=== PATIENT | male | born 1975 | race Caucasian/White ===

== ENCOUNTER 2025-01-08 09:05 | Inpatient (IN) | payer SELFPAY ==
[2025-01-08] VITALS (28 sets, daily range): BP systolic 113–157; BP diastolic 68–121; PULSE 78–147; RESP 14–33; TEMP 98–98.8; O2SAT 95–99
[~2025-01-08] VITALS: Ht 182.9 cm; Wt 75.4 kg
[2025-01-08 09:43] LABS: BASOPHILS % 0.1 % (0.0-1.0); EOSINOPHILS % 0.0 % (0.0-6.0); LYMPHOCYTES % 6.7 % (18.0-39.1); MONOCYTES % 5.9 % (4.4-11.3); NEUTROPHILS % 86.5 % (38.7-80.0); RED CELL DISTRIBUTION WIDTH 13.3 % (11.7-14.4)
[2025-01-08] MEDS: SODIUM CHLORIDE 0.9% 1000ML 1,000 ML IV STA (09:52)
[2025-01-08] MEDS: ONDANSETRON HCL INJ 2MG/ML 2ML 2 MG/ML VIAL IV STA (09:52)
[2025-01-08] MEDS: LORAZEPAM INJ 2 MG/ML VIAL IV ONE ×3 (09:52→14:09)
[2025-01-08 10:26] LABS: INR 1.0
[2025-01-08 10:34] LABS: EST GLOMERULAR FILTRATION RATE 118 ML/MIN (>=60)
[2025-01-08] MEDS ORDERED: IOPAMIDOL 370 MG/ML 100 ML INFUS..BTL INJ ONE (10:45)
[2025-01-08] MEDS ORDERED: SODIUM CHLORIDE 0.9% 100 ML ONE (11:12)
[2025-01-08 11:38] LABS: LEUKOCYTE ESTERASE ,URINE NEGATIVE (NEGATIVE); PROTEIN,URINE DIPSTICK NEGATIVE (NEGATIVE)
[2025-01-08 11:39] LABS: AMPHETAMINES SCREEN,URINE NEGATIVE (NEGATIVE); CANNABINOIDS SCREEN,URINE NEGATIVE (NEGATIVE); COCAINE SCREEN,URINE NEGATIVE (NEGATIVE); METHADONE SCREEN, URINE NEGATIVE (NEGATIVE); OPIATES SCREEN,URINE NEGATIVE (NEGATIVE); URINE UROBILINOGEN 4.0 mg/dL (0.2 - 1)
[2025-01-08] MEDS: THIAMINE HCL INJ 100 MG/ML 2ML VIAL IV ONE (11:58)
[2025-01-08 12:00] LABS: EPITHELIAL CELLS,URINE RARE /LPF; WBC,URINE (MAN) 0-5 /HPF (0-5)
[2025-01-08] MEDS: METRONIDAZOLE 500MG/NS 100ML 100 ML IV SCH (12:00)
[2025-01-08] MEDS ORDERED: ONDANSETRON HCL INJ 2MG/ML 2ML 2 MG/ML VIAL IV PRN (12:15)
[2025-01-08] MEDS: ZIPRASIDONE 20 MG VIAL IM STA ×2 (14:08→14:44)
[2025-01-08] MEDS: WATER STERILE 10 ML VIAL IM SCH (14:12)
[2025-01-08] MEDS ORDERED: MAGNESIUM/ALUMINUM/SIMETHICONE 30 ML UDC PO PRN (14:30)
[2025-01-08] MEDS ORDERED: HYDRALAZINE HCL 20 MG/ML VIAL IV PRN (14:30)
[2025-01-08] MEDS ORDERED: ZIPRASIDONE 20 MG VIAL IM PRN (14:45)
[2025-01-08] MEDS ORDERED: ALBUTEROL0.63 MG/3 NEB (14:56)
[2025-01-08 15:08] LABS: ABG BASE EXCESS 2.0 mmol/L (-2 - 3); ABG HCO3 24 mmol/L (22-26); ABG OXYGEN SATURATION 95.0 % (95-98); ABG PCO2 30 mmHg (35-45); ABG PH 7.53 (7.35-7.45); ABG PO2 66 mmHg (80-105); ABG TCO2 25
[2025-01-08] MEDS: DEXMEDETOMIDINE 400MCG/NS100ML 100 ML IV PRN (16:22)
[2025-01-08 17:21] LABS: OSMOLALITY,SERUM 226 mOsm/kg (278-305)
[2025-01-08] MEDS: ENOXAPARIN SOD INJ 40 MG/0.4 ML SYR SC SCH (17:45)
[2025-01-08] MEDS: CARVEDILOL 3.125 MG TAB PO SCH (17:45)
[2025-01-08] MEDS: LACTULOSE SYRUP 20 GM/30 ML UDC PO SCH (17:46)
[2025-01-08] MEDS: DOCUSATE SODIUM 100 MG CAP PO SCH (17:46)
[2025-01-08] MEDS: MAGNESIUM SULFATE 2GM/50ML 50 ML IV ONE ×2 (17:46→19:07)
[2025-01-08] MEDS: CHLORDIAZEPOXIDE HCL 25 MG CAP PO SCH (17:46)
[2025-01-08] MEDS: QUETIAPINE FUMARATE 25 MG TAB PO SCH (20:35)
[2025-01-08] MEDS ORDERED: MELATONIN 3 MG TAB PO PRN (21:00)
[2025-01-08] MEDS: DEXTROSE 5% 1,000 ML IV SCH (22:01)
[2025-01-08] MEDS ORDERED: DESMOPRESSIN ONE (22:07)
[2025-01-08] MEDS: DESMOPRESSIN ACETATE 4 MCG/ML VIAL IV ONE (22:08)
[2025-01-09] VITALS (28 sets, daily range): BP systolic 106–148; BP diastolic 55–111; PULSE 59–108; RESP 11–28; TEMP 97.9–99; O2SAT 89–100
[2025-01-09] MEDS: LORAZEPAM INJ 2 MG/ML VIAL IV PRN ×2 (01:25→10:35)
[2025-01-09 06:55] LABS: BASOPHILS % 0.3 % (0.0-1.0); EOSINOPHILS % 0.4 % (0.0-6.0); LYMPHOCYTES % 9.4 % (18.0-39.1); MONOCYTES % 7.4 % (4.4-11.3); NEUTROPHILS % 81.6 % (38.7-80.0); RED CELL DISTRIBUTION WIDTH 14.5 % (11.7-14.4)
[2025-01-09 07:28] LABS: EST GLOMERULAR FILTRATION RATE 118.0 ML/MIN (>=60)
[2025-01-09] MEDS: MULTIVITAMINS/MINERALS TAB PO SCH (08:58)
[2025-01-09] MEDS: FOLIC ACID 1 MG TAB PO SCH (08:59)
[2025-01-09] MEDS: THIAMINE HCL 100 MG TAB PO SCH (08:59)
[2025-01-09] MEDS: LORAZEPAM INJ 2 MG/ML VIAL ONE (10:35)
[2025-01-09] MEDS: POTASSIUM CHLORIDE 20 MEQ TAB CR PO ONE (10:40)
[2025-01-09] MEDS: POTASSIUM CHLORIDE 20MEQ/100ML 100 ML IV SCH (10:40)
[2025-01-09] MEDS: LORAZEPAM INJ 2 MG/ML VIAL IV ONE (11:48)
[2025-01-09 16:07] LABS: EST GLOMERULAR FILTRATION RATE 120.0 ML/MIN (>=60)
[2025-01-09] MEDS: MULTIVITAMINS- 12 INJECTION 10 ML, FOLIC ACID MDV 1 MG, THIAMINE HCL INJ 100 MG in SODI... IV SCH (19:28)
[2025-01-09] MEDS: SODIUM CHLORIDE 1 GM TAB PO SCH (21:00)
[2025-01-10] VITALS (39 sets, daily range): BP systolic 105–175; BP diastolic 54–109; PULSE 38–102; RESP 16–31; TEMP 97.6–98.3; O2SAT 94–100
[2025-01-10 05:50] LABS: BASOPHILS % 0.8 % (0.0-1.0); EOSINOPHILS % 0.6 % (0.0-6.0); LYMPHOCYTES % 8.4 % (18.0-39.1); MONOCYTES % 8.6 % (4.4-11.3); NEUTROPHILS % 80.4 % (38.7-80.0); RED CELL DISTRIBUTION WIDTH 15.5 % (11.7-14.4)
[2025-01-10 06:33] LABS: EST GLOMERULAR FILTRATION RATE 120.0 ML/MIN (>=60)
[2025-01-10] MEDS ORDERED: DEXTROSE 5% 1,000 ML IV PRN (08:30)
[2025-01-10] MEDS: MULTIVITAMINS IV ONE (08:40)
[2025-01-10] MEDS: [UNRECOGNIZED DRUG - OTHER] IV ONE (08:40)
[2025-01-10] MEDS: THIAMINE HCL IV ONE (08:40)
[2025-01-10] MEDS: FOLIC ACID IV ONE (08:40)
[2025-01-10 09:19] LABS: EOSINOPHILS % (MANUAL) 1 % (0-7); LYMPHOCYTES % (MANUAL) 6 % (19-48); MONOCYTES % (MANUAL) 11 % (3.4-9.0); NEUTROPHILS % (MANUAL) 82 % (40-74); NUCLEATED RED BLOOD CELLS 3; PLATELET ESTIMATE SLIGHTLY DECREASED; PLATELET MORPHOLOGY COMMENT FEW LARGE
[2025-01-10] MEDS: POTASSIUM CHLORIDE 20MEQ/100ML 100 ML IV SCH (09:48)
[2025-01-10 15:06] LABS: EST GLOMERULAR FILTRATION RATE 120.0 ML/MIN (>=60)
[2025-01-10] MEDS: DESMOPRESSIN ACETATE 4 MCG/ML VIAL IV ONE (16:55)
[2025-01-10] MEDS: DEXMEDETOMIDINE 400MCG/NS100ML 100 ML IV PRN (17:23)
[2025-01-10] MEDS: POTASSIUM CHLORIDE 20 MEQ TAB CR PO ONE (18:42)
[2025-01-10] MEDS: GUAIFENESIN/DEXTROMETHORPHAN LIQD 5 ML UDC PO PRN (23:35)
[2025-01-10] MEDS: SODIUM CHLORIDE 0.9% 1000ML 1,000 ML IV PRN (23:37)
[2025-01-11] VITALS (27 sets, daily range): BP systolic 119–167; BP diastolic 66–132; PULSE 73–109; RESP 18–37; TEMP 98.9–99.8; O2SAT 94–100
[2025-01-11 06:16] LABS: BASOPHILS % 2.0 % (0.0-1.0); EOSINOPHILS % 1.0 % (0.0-6.0); LYMPHOCYTES % 11.9 % (18.0-39.1); MONOCYTES % 12.0 % (4.4-11.3); NEUTROPHILS % 69.7 % (38.7-80.0); RED CELL DISTRIBUTION WIDTH 16.3 % (11.7-14.4)
[2025-01-11 06:53] LABS: EST GLOMERULAR FILTRATION RATE 122.0 ML/MIN (>=60)
[2025-01-11] MEDS: ALBUTEROL/IPRATROPIUM 3 ML NEB NEB PRN (07:38)
[2025-01-11] MEDS: KCL 20 MEQ PACKET/ ORAL SOLN PO SCH (09:24)
[2025-01-11] MEDS: MULTIVITAMINS IV SCH (12:03)
[2025-01-11] MEDS: THIAMINE HCL IV SCH (12:03)
[2025-01-11] MEDS: FOLIC ACID IV SCH (12:03)
[2025-01-11] MEDS: [UNRECOGNIZED DRUG - OTHER] IV SCH (12:03)
[2025-01-11] MEDS: RIFAXIMIN 550 MG TABLET PO SCH (16:47)
[2025-01-12] VITALS (28 sets, daily range): BP systolic 81–159; BP diastolic 62–108; PULSE 68–87; RESP 17–38; TEMP 98.6–99.2; O2SAT 88–97
[2025-01-12 05:06] LABS: BASOPHILS % 2.1 % (0.0-1.0); EOSINOPHILS % 0.7 % (0.0-6.0); LYMPHOCYTES % 15.8 % (18.0-39.1); MONOCYTES % 10.1 % (4.4-11.3); NEUTROPHILS % 66.8 % (38.7-80.0); RED CELL DISTRIBUTION WIDTH 17.2 % (11.7-14.4)
[2025-01-12 05:31] LABS: EST GLOMERULAR FILTRATION RATE 121.0 ML/MIN (>=60)
[2025-01-12] MEDS: IPRATROPIUM BROMIDE 0.02% 2.5 ML NEB NEB PRN (19:37)
[2025-01-13] VITALS (21 sets, daily range): BP systolic 105–147; BP diastolic 71–111; PULSE 69–106; RESP 17–33; TEMP 97.8–100.1; O2SAT 83–100
[2025-01-13] MEDS ORDERED: POTASSIUM CHLORIDE 20 MEQ TAB CR PO STA (01:21)
[2025-01-13] MEDS ORDERED: POTASSIUM CHLORIDE 20MEQ/100ML 200 ML IV ONE (04:15)
[2025-01-13] MEDS: POTASSIUM CHLORIDE 20MEQ/100ML 200 ML IV ONE (04:53)
[2025-01-13 10:43] LABS: BASOPHILS % 1.9 % (0.0-1.0); EOSINOPHILS % 0.8 % (0.0-6.0); LYMPHOCYTES % 13.9 % (18.0-39.1); MONOCYTES % 9.3 % (4.4-11.3); NEUTROPHILS % 71.1 % (38.7-80.0); RED CELL DISTRIBUTION WIDTH 18.0 % (11.7-14.4)
[2025-01-13 11:09] LABS: EST GLOMERULAR FILTRATION RATE 124.0 ML/MIN (>=60)
[2025-01-13] MEDS: CHLORDIAZEPOXIDE HCL 10 MG CAP PO SCH (12:26)
[2025-01-13] MEDS: ACETAMINOPHEN 325 MG TAB PO PRN (20:12)
[2025-01-14] VITALS (20 sets, daily range): BP systolic 107–159; BP diastolic 64–104; PULSE 84–108; RESP 16–38; TEMP 98.8–99.4; O2SAT 83–100
[2025-01-14 06:59] LABS: EST GLOMERULAR FILTRATION RATE 120.0 ML/MIN (>=60)
[2025-01-14] MEDS: LORAZEPAM INJ 2 MG/ML VIAL IV PRN ×2 (10:00)
[2025-01-14] MEDS: POTASSIUM CHLORIDE 20 MEQ TAB CR PO ONE (12:58)
[2025-01-15] VITALS (21 sets, daily range): BP systolic 112–140; BP diastolic 82–94; PULSE 94–118; RESP 19–40; TEMP 98–102.6; O2SAT 91–100
[2025-01-15 06:22] LABS: BASOPHILS % 1.7 % (0.0-1.0); EOSINOPHILS % 0.3 % (0.0-6.0); LYMPHOCYTES % 11.3 % (18.0-39.1); MONOCYTES % 8.3 % (4.4-11.3); NEUTROPHILS % 77.2 % (38.7-80.0); RED CELL DISTRIBUTION WIDTH 19.9 % (11.7-14.4)
[2025-01-15 07:36] LABS: EST GLOMERULAR FILTRATION RATE 122.0 ML/MIN (>=60)
[2025-01-15] MEDS ORDERED: LORAZEPAM INJ 2 MG/ML VIAL IV PRN (10:30)
[2025-01-16] VITALS (14 sets, daily range): BP systolic 110–148; BP diastolic 75–94; PULSE 92–127; RESP 20–35; TEMP 99–101.7; O2SAT 93–100
[2025-01-16 03:25] LABS: BASOPHILS % 1.2 % (0.0-1.0); EOSINOPHILS % 0.3 % (0.0-6.0); LYMPHOCYTES % 12.5 % (18.0-39.1); MONOCYTES % 6.5 % (4.4-11.3); NEUTROPHILS % 77.9 % (38.7-80.0); RED CELL DISTRIBUTION WIDTH 20.7 % (11.7-14.4)
[2025-01-16 03:38] LABS: EST GLOMERULAR FILTRATION RATE 117.0 ML/MIN (>=60)
[2025-01-16] MEDS: POTASSIUM CHLORIDE 10MEQ EA PO STA (04:22)
[2025-01-16] MEDS ORDERED: LACTATED RINGER'S 1,000 ML INJ ONE (15:30)
[2025-01-16] MEDS: RIFAXIMIN 550 MG TABLET PO SCH (17:45)
[2025-01-16] MEDS: DEXTROSE 5%/0.45% SOD CHL 1,000 ML IV SCH (17:58)
[2025-01-16 20:39] LABS: LEUKOCYTE ESTERASE ,URINE LARGE (NEGATIVE); PROTEIN,URINE DIPSTICK >=300 (NEGATIVE)
[2025-01-16 20:40] LABS: URINE UROBILINOGEN 1 mg/dL (0.2 - 1)
[2025-01-16 20:53] LABS: WBC,URINE (MAN) >50 /HPF (0-5)
[2025-01-16 20:54] LABS: YEAST,URINE MODERATE
[2025-01-17] VITALS (17 sets, daily range): BP systolic 105–136; BP diastolic 75–96; PULSE 94–114; RESP 18–36; TEMP 98.5–102.3; O2SAT 92–99
[2025-01-17 04:53] LABS: BASOPHILS % 1.1 % (0.0-1.0); EOSINOPHILS % 0.3 % (0.0-6.0); LYMPHOCYTES % 10.5 % (18.0-39.1); MONOCYTES % 5.5 % (4.4-11.3); NEUTROPHILS % 81.4 % (38.7-80.0); RED CELL DISTRIBUTION WIDTH 21.1 % (11.7-14.4)
[2025-01-17 05:15] LABS: EST GLOMERULAR FILTRATION RATE 112.0 ML/MIN (>=60)
[2025-01-17] MEDS: POTASSIUM CHLORIDE 20MEQ/100ML 100 ML IV SCH (08:27)
[2025-01-17] MEDS ORDERED: LEVALBUTEROL HCL SOLN NEBU 1.25 MG/3 ML NEB INH PRN (10:30)
[2025-01-17] MEDS ORDERED: ETOMIDATE 2 MG/ML 10 ML INJ IV ONE (12:39)
[2025-01-17] MEDS ORDERED: SUCCINYLCHOLINE CHLORIDE 20 MG/ML 10ML VIAL ONE (12:39)
[2025-01-17] MEDS ORDERED: EPINEPHRINE HCL SYRINGE ONE (12:40)
[2025-01-17] MEDS ORDERED: SODIUM BICARBONATE 8.4% INJ 50 ML SYR ONE (12:40)
[2025-01-17] MEDS: METOCLOPRAMIDE HCL 10 MG/2ML VIAL IV SCH (12:59)
[2025-01-17] MEDS: LEVALBUTEROL HCL SOLN NEBU 1.25 MG/3 ML NEB INH SCH (13:00)
[2025-01-17] MEDS: IPRATROPIUM BROMIDE 0.02% 2.5 ML NEB NEB SCH (13:00)
[2025-01-17] MEDS: FLUCONAZOLE 100 MG/NS 50 ML 50 ML IV SCH (13:01)
[2025-01-17] MEDS: THIAMINE HCL INJ 100 MG/ML 2ML VIAL IV SCH (13:28)
[2025-01-17] MEDS: DEXTROSE 5% 1,000 ML IV SCH (17:18)
[2025-01-17] MEDS: FLUCONAZOLE 200 MG/100 ML 100 ML IV SCH (17:41)
[2025-01-17] MEDS: ENOXAPARIN 30 MG/0.3 ML SYR SC SCH (17:53)
[2025-01-17] MEDS: ACETAMINOPHEN 1000 MG/100 ML IV SCH (18:00)
[2025-01-18] VITALS (16 sets, daily range): BP systolic 110–138; BP diastolic 75–95; PULSE 100–121; RESP 24–44; TEMP 98.5–102.8; O2SAT 90–98
[2025-01-18] MEDS: ACETAMINOPHEN 1000 MG/100 ML IV PRN ×2 (04:17→20:17)
[2025-01-18 05:46] LABS: EST GLOMERULAR FILTRATION RATE 107.0 ML/MIN (>=60); PHOSPHORUS 2.2 MG/DL (2.3-4.7)
[2025-01-18 05:47] LABS: BASOPHILS % 1.7 % (0.0-1.0); EOSINOPHILS % 0.4 % (0.0-6.0); LYMPHOCYTES % 12.1 % (18.0-39.1); MONOCYTES % 4.8 % (4.4-11.3); NEUTROPHILS % 79.8 % (38.7-80.0); RED CELL DISTRIBUTION WIDTH 20.6 % (11.7-14.4)
[2025-01-18 22:47] LABS: ABG BASE EXCESS 2.0 mmol/L (-2 - 3); ABG HCO3 28 mmol/L (22-26); ABG OXYGEN SATURATION 93.0 % (95-98); ABG PCO2 51 mmHg (35-45); ABG PH 7.34 (7.35-7.45); ABG PO2 72 mmHg (80-105); ABG TCO2 29
[2025-01-18 23:04] LABS: BASOPHILS % 1.6 % (0.0-1.0); EOSINOPHILS % 0.5 % (0.0-6.0); LYMPHOCYTES % 14.7 % (18.0-39.1); MONOCYTES % 4.6 % (4.4-11.3); NEUTROPHILS % 76.3 % (38.7-80.0); RED CELL DISTRIBUTION WIDTH 20.9 % (11.7-14.4)
[2025-01-18 23:19] LABS: B-TYPE NATRIURETIC PEPTIDE2 63.8 pg/mL (0-100)
[2025-01-18 23:22] LABS: EST GLOMERULAR FILTRATION RATE 75.0 ML/MIN (>=60)
[2025-01-18] MEDS ORDERED: SODIUM CHLORIDE 0.9% 250ML 250 ML ONE (23:30)
[2025-01-18] MEDS: Vancomycin IV 1.25 GM in SODIUM CHLORIDE 0.9% 250ML 250 ML IV ONE (23:43)
[2025-01-19] VITALS (15 sets, daily range): BP systolic 42–158; BP diastolic 25–97; PULSE 97–130; RESP 21–40; TEMP 98.2–99.5; O2SAT 55–97
[2025-01-19] MEDS: LACTATED RINGER'S 1,000 ML INJ ONE (02:25)
[2025-01-19] MEDS ORDERED: AMIODARONE 900MG 900 MG in Premix Bag 1 BAG IV SCH (02:45)
[2025-01-19] MEDS: AMIODARONE HCL 150 MG/100 ML BAG IV ONE (03:32)
[2025-01-19] MEDS ORDERED: AMIODARONE 900MG 500 ML IV ONE (03:33)
[2025-01-19] MEDS: VASOPRESSIN 60 UNIT in DEXTROSE 5% 50ML 50 ML IV SCH (03:34)
[2025-01-19] MEDS: LORAZEPAM INJ 2 MG/ML VIAL IV ONE (03:39)
[2025-01-19] MEDS ORDERED: PROPOFOL IV EMULSION 10MG/ML 100 ML IV PRN (03:45)
[2025-01-19] MEDS ORDERED: SODIUM CHLORIDE 0.9% 1000ML 1,000 ML ONE ×2 (04:30→06:16)
[2025-01-19] MEDS: LACTATED RINGER'S 1,000 ML IV ONE ×2 (04:38→06:06)
[2025-01-19] MEDS: MIDAZOLAM HCL 2 MG/2 ML VIAL IV STA (04:46)
[2025-01-19 05:40] LABS: ABG BASE EXCESS -8.0 mmol/L (-2 - 3); ABG HCO3 24 mmol/L (22-26); ABG PCO2 94 mmHg (35-45); ABG PH 7.01 (7.35-7.45); ABG PO2 96 mmHg (80-105); ABG TCO2 26
[2025-01-19 05:41] LABS: ABG OXYGEN SATURATION 91.0 % (95-98)
[2025-01-19] MEDS ORDERED: LACTATED RINGER'S 1,000 ML ONE (05:42)
[2025-01-19] MEDS: NOREPINEPHRINE 8 MG/D5W 250 ML 250 ML IV SCH (06:09)
[2025-01-19] MEDS ORDERED: EPINEPHRINE HCL SYRINGE ONE ×2 (06:16→08:46)
[2025-01-19] MEDS ORDERED: EPINEPHRINE HCL 1:1000 1ML 1 MG/ML AMP ONE ×2 (06:19→06:20)
[2025-01-19] MEDS: EPINEPHRINE HCL 1:1000 1ML 4 MG in DEXTROSE 5% 250ML 250 ML IV STA (06:29)
[2025-01-19] MEDS: MEROPENEM 1 GM in SODIUM CHLORIDE 0.9% 100 ML IV ONE (06:30)
[2025-01-19 07:27] LABS: ABG PH 7.01 (7.35-7.45)
[2025-01-19 07:28] LABS: ABG BASE EXCESS -8.0 mmol/L (-2 - 3); ABG HCO3 23 mmol/L (22-26); ABG OXYGEN SATURATION 56.0 % (95-98); ABG PCO2 91 mmHg (35-45); ABG PO2 45 mmHg (80-105); ABG TCO2 26
[2025-01-19] MEDS ORDERED: SODIUM BICARBONATE 8.4% SYRING 100 ML ONE (08:01)
[2025-01-19 08:14] LABS: BASOPHILS % 1.7 % (0.0-1.0); EOSINOPHILS % 0.8 % (0.0-6.0); LYMPHOCYTES % 37.9 % (18.0-39.1); MONOCYTES % 4.0 % (4.4-11.3); NEUTROPHILS % 53.2 % (38.7-80.0); RED CELL DISTRIBUTION WIDTH 19.9 % (11.7-14.4)
[2025-01-19] MEDS ORDERED: DEXTROSE 5% 250ML 250 ML IV ONE (08:41)
[2025-01-19 09:05] LABS: ABG PH 7.03 (7.35-7.45)
[2025-01-19 09:06] LABS: ABG PCO2 96 mmHg (35-45)
[2025-01-19 09:07] LABS: ABG BASE EXCESS -6.0 mmol/L (-2 - 3); ABG HCO3 25 mmol/L (22-26); ABG OXYGEN SATURATION 74.0 % (95-98); ABG PO2 59 mmHg (80-105); ABG TCO2 28
[2025-01-19] MEDS: PHENYLEPHRINE 10MG/ML VIAL 40 MG in DEXTROSE 5% 250ML 246 ML IV SCH (09:23)
[2025-01-19 09:24] LABS: ABG PH 7.06 (7.35-7.45)
[2025-01-19 09:25] LABS: ABG BASE EXCESS -7.0 mmol/L (-2 - 3); ABG HCO3 24 mmol/L (22-26); ABG OXYGEN SATURATION 76.0 % (95-98); ABG PCO2 83 mmHg (35-45); ABG PO2 59 mmHg (80-105); ABG TCO2 26
[2025-01-19] MEDS: DEXTROSE 5%/LACTATED RINGERS 1,000 ML IV ONE (09:35)
[2025-01-19] MEDS: EPINEPHRINE HCL 1:1000 1ML 4 MG in DEXTROSE 5% 250ML 250 ML IV SCH (09:36)
[2025-01-19 09:38] LABS: PHOSPHORUS 12.2 MG/DL (2.3-4.7)
[2025-01-19 10:57] LABS: EST GLOMERULAR FILTRATION RATE 27 ML/MIN (>=60)
[2025-01-19] MEDS ORDERED: DEXTROSE 5%/LACTATED RINGERS 1,000 ML IV SCH ×2 (11:00→11:15)
[2025-01-19] MEDS ORDERED: DEXTROSE 50% SYRINGE 50 ML IV PRN (11:05)
[2025-01-19 11:10] LABS: BAND NEUTROPHILS % (MANUAL) 5 %; EOSINOPHILS % (MANUAL) 1 % (0-7); LYMPHOCYTES % (MANUAL) 37 % (19-48); METAMYELOCYTES % (MANUAL) 4 % (0-0); MONOCYTES % (MANUAL) 5 % (3.4-9.0); MYELOCYTES % (MANUAL) 2 % (0-0); NEUTROPHILS % (MANUAL) 42 % (40-74); NUCLEATED RED BLOOD CELLS 16; REACTIVE LYMPHOCYTES 4
[2025-01-19 11:12] LABS: PLATELET ESTIMATE ADEQUATE
[2025-01-19 11:13] LABS: PLATELET MORPHOLOGY COMMENT NORMAL
[2025-01-19] MEDS ORDERED: VASOPRESSIN 60 UNIT in DEXTROSE 5% 50ML 57 ML IV SCH (11:45)
[2025-01-19] MEDS ORDERED: INSULIN REGULAR, HUMAN 100 UNIT/1 ML IV ONE (12:00)
[2025-01-19] MEDS ORDERED: CALCIUM CHLORIDE 13.6 MEQ in SODIUM CHLORIDE 0.9% 100 ML IV ONE (12:00)
[2025-01-19] MEDS ORDERED: MEROPENEM 1 GM in SODIUM CHLORIDE 0.9% 100 ML IV SCH (22:20)
[2025-01-22 07:18] LABS: ABG BASE EXCESS 2.0 mmol/L (-2 - 3); ABG HCO3 24 mmol/L (22-26); ABG OXYGEN SATURATION 95.0 % (95-98); ABG PCO2 30 mmHg (35-45); ABG PH 7.53 (7.35-7.45); ABG PO2 66 mmHg (80-105); ABG TCO2 25
[2025-02-04 11:30] LABS: ABG BASE EXCESS -8.0 mmol/L (-2 - 3); ABG HCO3 24 mmol/L (22-26); ABG OXYGEN SATURATION 91.0 % (95-98); ABG PCO2 94 mmHg (35-45); ABG PH 7.01 (7.35-7.45); ABG PO2 96 mmHg (80-105); ABG TCO2 26
[2025-02-04 11:30] LABS: ABG BASE EXCESS -8.0 mmol/L (-2 - 3); ABG HCO3 23 mmol/L (22-26); ABG OXYGEN SATURATION 56.0 % (95-98); ABG PCO2 91 mmHg (35-45); ABG PH 7.01 (7.35-7.45); ABG PO2 45 mmHg (80-105); ABG TCO2 26
[2025-02-04 11:30] LABS: ABG BASE EXCESS -7.0 mmol/L (-2 - 3); ABG HCO3 24 mmol/L (22-26); ABG OXYGEN SATURATION 76.0 % (95-98); ABG PCO2 83 mmHg (35-45); ABG PH 7.06 (7.35-7.45); ABG PO2 59 mmHg (80-105); ABG TCO2 26
[2025-02-04 11:30] LABS: ABG BASE EXCESS -6.0 mmol/L (-2 - 3); ABG HCO3 25 mmol/L (22-26); ABG OXYGEN SATURATION 74.0 % (95-98); ABG PCO2 96 mmHg (35-45); ABG PH 7.03 (7.35-7.45); ABG PO2 59 mmHg (80-105); ABG TCO2 28
[2025-02-04 11:30] LABS: ABG BASE EXCESS 2.0 mmol/L (-2 - 3); ABG HCO3 28 mmol/L (22-26); ABG OXYGEN SATURATION 93.0 % (95-98); ABG PCO2 51 mmHg (35-45); ABG PH 7.34 (7.35-7.45); ABG PO2 72 mmHg (80-105); ABG TCO2 29
== END 2025-01-19 15:30 | disposition expired | DRG 432 ==
LOC: ER 09:13 → ERHOLD 12:06 → ICU 13:10
PROVIDERS: ADMIT Internal Medicine; ATTEND Internal Medicine
PROC: 4A033R1 Measurement of Arterial Saturation, Peripheral, Percutaneous Approach (ICD-10-PCS; 2025-01-08)
PROC: 4A033R1 Measurement of Arterial Saturation, Peripheral, Percutaneous Approach (ICD-10-PCS; 2025-01-08)
PROC: 0DH67UZ Insertion of Feeding Device into Stomach, Via Natural or Artificial Opening (ICD-10-PCS; 2025-01-16)
PROC: 3E0G76Z Introduction of Nutritional Substance into Upper GI, Via Natural or Artificial Opening (ICD-10-PCS; 2025-01-17)
PROC: 4A033R1 Measurement of Arterial Saturation, Peripheral, Percutaneous Approach (ICD-10-PCS; 2025-01-18)
PROC: 02HV33Z Insertion of Infusion Device into Superior Vena Cava, Percutaneous Approach (ICD-10-PCS; principal; 2025-01-19)
PROC: B548ZZA Ultrasonography of Superior Vena Cava, Guidance (ICD-10-PCS; 2025-01-19)
PROC: 4A033R1 Measurement of Arterial Saturation, Peripheral, Percutaneous Approach (ICD-10-PCS; 2025-01-19)
PROC: 4A033R1 Measurement of Arterial Saturation, Peripheral, Percutaneous Approach (ICD-10-PCS; 2025-01-19)
PROC: 4A033R1 Measurement of Arterial Saturation, Peripheral, Percutaneous Approach (ICD-10-PCS; 2025-01-19)
PROC: 4A033R1 Measurement of Arterial Saturation, Peripheral, Percutaneous Approach (ICD-10-PCS; 2025-01-19)
PROC: 3E043XZ Introduction of Vasopressor into Central Vein, Percutaneous Approach (ICD-10-PCS; 2025-01-19)
PROC: 03HY32Z Insertion of Monitoring Device into Upper Artery, Percutaneous Approach (ICD-10-PCS; 2025-01-19)
PROC: 4A133B1 Monitoring of Arterial Pressure, Peripheral, Percutaneous Approach (ICD-10-PCS; 2025-01-19)
PROC: 5A1935Z Respiratory Ventilation, Less than 24 Consecutive Hours (ICD-10-PCS; 2025-01-19)
PROC: 0BH17EZ Insertion of Endotracheal Airway into Trachea, Via Natural or Artificial Opening (ICD-10-PCS; 2025-01-19)
PROC: 5A09357 Assistance with Respiratory Ventilation, Less than 24 Consecutive Hours, Continuous Positive Airway Pressure (ICD-10-PCS; 2025-01-19)
PROC: 4A133J1 Monitoring of Arterial Pulse, Peripheral, Percutaneous Approach (ICD-10-PCS; 2025-01-19)
PROC: 0BH17EZ Insertion of Endotracheal Airway into Trachea, Via Natural or Artificial Opening (ICD-10-PCS; 2025-01-19)
PROC: 5A1935Z Respiratory Ventilation, Less than 24 Consecutive Hours (ICD-10-PCS; 2025-01-19)
PROC: 3E043XZ Introduction of Vasopressor into Central Vein, Percutaneous Approach (ICD-10-PCS; 2025-01-19)
PROC: 5A12012 Performance of Cardiac Output, Single, Manual (ICD-10-PCS; 2025-01-19)
DX: K70.31 Alcoholic cirrhosis of liver with ascites (principal); E43 Unspecified severe protein-calorie malnutrition; J69.0 Pneumonitis due to inhalation of food and vomit; K72.00 Acute and subacute hepatic failure without coma; J96.00 Acute respiratory failure, unspecified whether with hypoxia or hypercapnia; F10.221 Alcohol dependence with intoxication delirium; M62.82 Rhabdomyolysis; B37.49 Other urogenital candidiasis; E72.20 Disorder of urea cycle metabolism, unspecified; E87.1 Hypo-osmolality and hyponatremia; K92.1 Melena; F10.231 Alcohol dependence with withdrawal delirium; K76.82 Hepatic encephalopathy; K72.10 Chronic hepatic failure without coma; I46.9 Cardiac arrest, cause unspecified; D64.9 Anemia, unspecified; K70.11 Alcoholic hepatitis with ascites; G31.2 Degeneration of nervous system due to alcohol; R13.12 Dysphagia, oropharyngeal phase; Y90.0 Blood alcohol level of less than 20 mg/100 ml; R00.0 Tachycardia, unspecified; S30.11XA Contusion of abdominal wall, initial encounter; S80.01XA Contusion of right knee, initial encounter; W18.39XA Other fall on same level, initial encounter; E87.6 Hypokalemia; I95.9 Hypotension, unspecified; R33.9 Retention of urine, unspecified; I10 Essential (primary) hypertension; R31.0 Gross hematuria; Z78.1 Physical restraint status; D69.59 Other secondary thrombocytopenia; F17.200 Nicotine dependence, unspecified, uncomplicated; E83.51 Hypocalcemia; R60.0 Localized edema; J30.9 Allergic rhinitis, unspecified; K42.9 Umbilical hernia without obstruction or gangrene; Z68.22 Body mass index [BMI] 22.0-22.9, adult; Z71.3 Dietary counseling and surveillance
CPT/HCPCS: 36415; 36569; 36600; 70450; 71045; 72125; 74018; 74177; 76705; 80048; 80053; 80307; 80320; 80329; 81001; 82140; 82310; 82550; 82607; 82805; 82947; 82948; 83605; 83690; 83735; 83880; 83930; 83935; 84100; 84295; 84300; 84443; 84484; 84520; 85014; 85018; 85025; 85610; 85730; 87040; 87086; 92950; 93005; 94002; 94003; 94640; 94660; 94760; 94799; 99252; 99284; J0169; J0171; J0330; J0696; J1450; J1650; J2060; J2185; J2250; J2371; J2405; J2470; J2765; J3373; J3411; J3475; J3480; J3486; J7030; J7050; J7070; J7799; Q9967